=== PATIENT | female | born 1965 ===

== ENCOUNTER 2017-02-24 14:24 | Emergency (ER) | payer SELFPAY ==
[2017-02-24 14:39] VITALS: BP 116/60; PULSE 76; RESP 16; TEMP 98.2; O2SAT 100
--- NOTE | 2017-02-24 15:29 | ED PDOC ---
HPI: Headache Time Seen by Provider: 02/24/17 14:43 Chief Complaint (Nursing): Headache Chief Complaint (Provider): Headache History Per: Patient History/Exam Limitations: no limitations, language barrier Onset/Duration Of Symptoms: Days (x2), Gradual, Worse Since (x2 days) Current Symptoms Are (Timing): Still Present Additional Complaint(s): Antionette Mar is a 51 year old female, with a past medical history of migraines, who presents to the emergency department complaining of headaches onset for 2 days. Patient reports she has had similar symptoms in the past but they have recently become more constant and gradual. Patient states she feels like she's about to "pass out" and reports taking ibuprofen with no relief. Patient denies any trauma, fever or chills. PMD: None provided. Past Medical History Reviewed: Historical Data, Nursing Documentation, Vital Signs Vital Signs: Last Vital Signs Temp 98.2 F 02/24/17 14:36 Pulse 76 02/24/17 14:36 Resp 16 02/24/17 14:36 BP 116/60 02/24/17 14:36 Pulse Ox 100 02/24/17 14:36 - Medical History PMH: Migraine Denies: HIV - Surgical History Surgical History: - Family History Family History: States: Unknown Family Hx - Social History Current smoker - smoking cessation education provided: No Alcohol: None Drugs: Denies - Home Medications Home Medications: Ambulatory Orders Medication Instructions Recorded Hydroxyurea 500 mg PO HS 02/17/14 Meclizine [Antivert] 12.5 mg PO BID PRN #30 tab 10/08/14 Aspirin [Aspirin Chewable] 81 mg PO DAILY 10/19/14 Hydroxyurea [Hydrea] 500 mg PO DAILY #30 cap 05/30/16 Cyclobenzaprine [Cyclobenzaprine 10 mg PO Q8H PRN #12 tab 02/24/17 HCl] - Allergies Allergies/Adverse Reactions: Allergies Allergy/AdvReac Type Severity Reaction Status Date / Time No Known Allergies Allergy Verified 02/24/17 14:36 Review of Systems ROS Statement: Except As Marked, All Systems Reviewed And Found Negative Constitutional: Negative for: Fever, Chills Neurological: Positive for: Headache (back of the head) Physical Exam - Reviewed Nursing Documentation Reviewed: Yes Vital Signs Reviewed: Yes - Physical Exam Appears: Positive for: Well, Non-toxic, No Acute Distress Head Exam: Positive for: ATRAUMATIC, NORMAL INSPECTION, NORMOCEPHALIC Skin: Positive for: Normal Color, Warm, Dry Eye Exam: Positive for: Normal appearance, EOMI, PERRL ENT: Positive for: Normal ENT Inspection Neck: Positive for: Normal Cardiovascular/Chest: Positive for: Regular Rate, Rhythm Respiratory: Positive for: Normal Breath Sounds. 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 Negative for: Motor/Sensory Deficits, Aphasia , Facial Droop - ECG O2 Sat by Pulse Oximetry: 100 (RA) Pulse Ox Interpretation: Normal Medical Decision Making Medical Decision Making: Initial Impression: Tension Initial Plan: --Head w/o contrast [CT] --Flexeril 10 mg --Toradol 30 mg IM --reevaluation [address] FINDINGS: HEMORRHAGE: No intracranial hemorrhage. BRAIN: No mass effect or edema. No atrophy or chronic microvascular ischemic changes. VENTRICLES: Unremarkable. No hydrocephalus. CALVARIUM: Unremarkable. PARANASAL SINUSES: Unremarkable as visualized. No significant inflammatory changes. MASTOID AIR CELLS: Unremarkable as visualized. No inflammatory changes. OTHER FINDINGS: None. IMPRESSION: No acute intracranial abnormalities. No significant findings to account for the clinical presentation. No significant interval change compared to the prior examination(s). Scribe Attestation: Documented by Alec Gallo, acting as a scribe for Keysha CERVANTES. Provider Scribe Attestation: All medical record entries made by the Scribe were at my direction and personally dictated by me. I have reviewed the chart and agree that the record accurately reflects my personal performance of the history, physical exam, medical decision making, and the department course for this patient. I have also personally directed, reviewed, and agree with the discharge instructions and disposition. Disposition - Clinical Impression Clinical Impression: Tension headache - Patient ED Disposition Is Patient to be Admitted: No Counseled Patient/Family Regarding: Diagnosis, Need For Followup - Disposition Referrals: Moises Izaguirre MD [Staff Provider] - Disposition: Routine/Home Disposition Time: 16:46 Condition: GOOD Prescriptions: Cyclobenzaprine [Cyclobenzaprine HCl] 10 mg PO Q8H PRN #12 tab PRN Reason: Muscle Spasm Instructions: Tension Headache (ED) Forms: [employer] (Chinese) Print Language: URDU
--- NOTE | 2017-02-24 16:34 | CT ---
PROCEDURE: CT HEAD WITHOUT CONTRAST. HISTORY: headaches COMPARISON: 02/17/2014. TECHNIQUE: Axial computed tomography images were obtained through the head/brain without intravenous contrast. Radiation dose: Total exam DLP = 869.39 mGy-cm. This CT exam was performed using one or more of the following dose reduction techniques: Automated exposure control, adjustment of the mA and/or kV according to patient size, and/or use of iterative reconstruction technique. FINDINGS: HEMORRHAGE: No intracranial hemorrhage. BRAIN: No mass effect or edema. No atrophy or chronic microvascular ischemic changes. VENTRICLES: Unremarkable. No hydrocephalus. CALVARIUM: Unremarkable. PARANASAL SINUSES: Unremarkable as visualized. No significant inflammatory changes. MASTOID AIR CELLS: Unremarkable as visualized. No inflammatory changes. OTHER FINDINGS: None. IMPRESSION: No acute intracranial abnormalities. No significant findings to account for the clinical presentation. No significant interval change compared to the prior examination(s).
== END 2017-02-24 16:52 | disposition home or self-care (01) ==
LOC: H.ER 14:24
DX: G44.209 Tension-type headache, unspecified, not intractable (principal); Z79.82 Long term (current) use of aspirin
CPT/HCPCS: 70450; 81025; 96372; 99283; J1885

== ENCOUNTER 2017-05-21 21:58 | Emergency (ER) | payer SELFPAY ==
[2017-05-21 22:10] VITALS: BP 111/77; PULSE 76; RESP 16; TEMP 98.1; O2SAT 99
--- NOTE | 2017-05-21 22:11 | ED PDOC ---
Lower Extremity Pain/Injury Time Seen by Provider: 05/21/17 22:10 Chief Complaint (Nursing): Lower Extremity Problem/Injury Chief Complaint (Provider): leg pain, fall History Per: Patient, Family (Son at bedside is translating for patient in vietnamese) Additional Complaint(s): 51-year-old female presents to emergency Department with pain to right foot and ankle status post trip and fall down 3 stairs at home earlier today. Patient did not sustain head injury or loss of consciousness. She denies dizziness or syncope prior to fall. Patient did not take any medicine for pain relief prior to arrival. No associated numbness or tingling to the affected area. Past Medical History Reviewed: Historical Data, Nursing Documentation, Vital Signs Vital Signs: Last Vital Signs Temp 98.1 F 05/21/17 22:07 Pulse 76 05/21/17 22:07 Resp 16 05/21/17 22:07 BP 111/77 05/21/17 22:07 Pulse Ox 99 05/21/17 22:07 - Medical History PMH: Migraine Other PMH: thrombocytosis - Surgical History Surgical History: (x 3) - Family History Family History: States: No Known Family Hx - Living Arrangements Living Arrangements: With Family - Social History Current smoker - smoking cessation education provided: No Alcohol: None Drugs: Denies - Home Medications Home Medications: Ambulatory Orders Medication Instructions Recorded Hydroxyurea 500 mg PO HS 02/17/14 Meclizine [Antivert] 12.5 mg PO BID PRN #30 tab 10/08/14 Aspirin [Aspirin Chewable] 81 mg PO DAILY 10/19/14 Hydroxyurea [Hydrea] 500 mg PO DAILY #30 cap 05/30/16 Cyclobenzaprine [Cyclobenzaprine 10 mg PO Q8H PRN #12 tab 02/24/17 HCl] Ibuprofen [Motrin Tab] 800 mg PO Q8 PRN #20 tab 05/21/17 - Allergies Allergies/Adverse Reactions: Allergies Allergy/AdvReac Type Severity Reaction Status Date / Time No Known Allergies Allergy Verified 05/21/17 22:07 Wells Criteria for PE - Wells Criteria for Pulmonary Embolism Clinical Signs and Symptoms of DVT: No P.E is #1 Diagnosis, or Equally Likely: No Heart Rate >100: No Immobilization at least 3 days;Surgery previous 4 weeks: No Previous, objectively diagnosed PE or DVT: No Hemoptysis: No Malignancy w/treatment within 6 months, or palliative: No Total Score: 0 Review of Systems ROS Statement: Except As Marked, All Systems Reviewed And Found Negative Musculoskeletal: Positive for: Other (right foot and ankle injury) Physical Exam - Reviewed Nursing Documentation Reviewed: Yes Vital Signs Reviewed: Yes - Physical Exam Appears: Positive for: Well, Non-toxic, No Acute Distress Skin: Negative for: Rash Eye Exam: Positive for: Normal appearance Extremity: Positive for: Other (Moderate swelling and tenderness to right lateral malleolus, mild tenderness dorsolateral aspect of right foot, normal distal sensation, palpable DP pulse) Neurologic/Psych: Positive for: Alert, Oriented - ECG O2 Sat by Pulse Oximetry: 99 Pulse Ox Interpretation: Normal - Other Rad Right foot and ankle x-ray X-Ray: Interpreted by Me, Viewed By Me X-Ray Interpretation: nondisplaced buckle fracture distal fibula Medical Decision Making Medical Decision Makin51 year old with right foot and ankle pain Plan: PO motrin X-ray right foot and ankle Podiatry resident, Dr. Choudhary at bedside for splint placement. Crutches given. Rx motrin. Disposition - Clinical Impression Clinical Impression: Fracture of distal fibula - Patient ED Disposition Is Patient to be Admitted: No Counseled Patient/Family Regarding: Studies Performed, Diagnosis, Need For Followup, Rx Given - Disposition Referrals: Podiatry Clinic [Outside] Disposition: Routine/Home Disposition Time: 23:15 Condition: STABLE Additional Instructions: Ice, rest and elevate affected area. Keep splint on at all times, do not remove splint or get splint wet. Use crutches when walking and do not bear weight on affected leg. Call podiatry clinic tomorrow to arrange for follow up visit for next Thursday. Prescriptions: Ibuprofen [Motrin Tab] 800 mg PO Q8 PRN #20 tab PRN Reason: Pain, Moderate (4-7) Instructions: Ankle Fracture (ED), Ty Splints (ED), Crutch Instructions (ED) Forms: [employer] ([employer]) Print Language: EGYPTIAN
--- NOTE | 2017-05-22 | CP.PCM.CON ---
History of Present Illness - History of Present Illness History of Present Illness: Podiatry Consult Note - Dr. Terrell 51 y/o female seen at bedside in ED for right ankle pain after tripping and falling down stairs earlier this evening. Pt states she noticed swelling and it immediately became painful to walk. Pt is unable to bear weight at this time without significant pain. Pt denies taking any medicine to treat it and says she came right here. Pt denies numbness, burning or tingling in the injury site or in the RLE. Pt denies F/C/N/V/CP/SOB PMH: thrombocytosis PSH: All: denies Social: denies etoh, denies tobacco or illicit drug use Family: denies family hx of diabetes or heart disease. lives with son Review of Systems - Review of Systems All systems: reviewed and no additional remarkable complaints except Past Patient History - Tetanus Immunizations Tetanus Immunization: Unknown - Past Medical History & Family History Past Medical History?: Yes - Past Social History Alcohol: None Drugs: Denies - NEUROLOGICAL Hx Migraine: Yes - HEENT Hx HEENT Problems: Yes (vertigo) - HEMATOLOGICAL/ONCOLOGICAL Hx Human Immunodeficiency Virus (HIV): No Other/Comment: THROMBOCYTOSIS - MUSCULOSKELETAL/RHEUMATOLOGICAL Hx Falls: No - PSYCHIATRIC Hx Substance Use: No - SURGICAL HISTORY Hx Surgeries: Yes Hx Section: Yes (x3) - ANESTHESIA Hx Anesthesia: Yes Hx Anesthesia Reactions: No Hx Malignant Hyperthermia: No Meds Home Medications: Home Medication List Medication Instructions Recorded Confirmed Type Ibuprofen [Motrin Tab] 800 mg PO Q8 PRN #20 tab 05/21/17 Rx Allergies/Adverse Reactions: Allergies Allergy/AdvReac Type Severity Reaction Status Date / Time No Known Allergies Allergy Verified 05/21/17 22:07 Physical Exam - Constitutional Appears: Well, Non-toxic, No Acute Distress - Extremities Exam Additional comments: RLE focused exam: Vasc: DP/PT pulses palpable 2/4. Temperature gradient warm to warm from proximal to distal. CFT < 3 sec to all digits. Non pitting perimalleolar edema noted, lateral > medial. Derm: No ecchymosis, no erythema, no open lesions, no clinical signs of infection Neuro: Protective sensation grossly intact Ortho: Tenderness to palpation of lateral malleolus. Moderate pain elicited upon active and passive ankle dorsiflexion, inversion and eversion. Ankle ROM assessment limited due to guarding. Unable to perform anterior drawer test due to pain. - Neurological Exam Neurological exam: Alert, Oriented x3 - Psychiatric Exam Psychiatric exam: Normal Affect, Normal Mood Results - Vital Signs Recent Vital Signs: Last Vital Signs Temp 98.1 F 05/21/17 22:07 Pulse 76 05/21/17 22:07 Resp 16 05/21/17 22:07 BP 111/77 05/21/17 22:07 Pulse Ox 99 05/21/17 23:21 Assessment & Plan - Assessment and Plan (Free Text) Assessment: 51 y/o female seen in ED for right nondisplaced distal fibular fracture secondary to fall Plan: Pt seen and evaluated in ED Discussed with attending Dr. Terrell X-rays of R ankle reveal nondisplaced fracture of distal fibula, no acute dislocations noted Posterior splint applied to RLE with crutches Pt to be NWB to RLE and keep splint clean dry and intact until next appointment Pt to follow up in [facility] podiatry clinic next Tuesday 05/[address] Terrell Thank you for this consult
--- NOTE | 2017-05-22 11:07 | RAD ---
PROCEDURE: Right Ankle Radiographs. HISTORY: trauma COMPARISON: Chondromalacia in made with the concurrent radiographs right foot. FINDINGS: BONES: The current study reveals no definitive radiographic evidence of acute displaced fracture nor dislocation. The osseous structures appear intact. If symptoms persist or occult fracture suspected clinically recommend repeat radiographs 7-10 days as most fractures should become radiographically evident in this timeframe. Alternately, MRI could be obtained. There is mild soft tissue swelling overlying the lateral malleolus JOINTS: Normal. No osteoarthritis. Ankle mortise maintained. Talar dome intact SOFT TISSUES: As above. OTHER FINDINGS: None. IMPRESSION: No definitive radiographic evidence of acute displaced fracture nor dislocation. Mild soft tissue swelling overlying the lateral malleolus. . Followup radiographs in 7-10 days and or MRI could be performed if symptoms persist or occult fracture suspected clinically as most fractures should become radiographically evident in this timeframe. .
--- NOTE | 2017-05-22 11:08 | RAD ---
PROCEDURE: Right Foot Radiographs. HISTORY: trauma COMPARISON: Correlation made with concurrent radiographs right ankle. FINDINGS: BONES: No evidence of acute displaced nor dislocation. . Osseous structures intact of. Soft tissue swelling over the lateral malleolus is less well seen on this study as compared to concurrent radiographs of the ankle. JOINTS: Normal. SOFT TISSUES: Normal. OTHER FINDINGS: None. IMPRESSION: No evidence of acute displaced fracture nor dislocation. If symptoms persist or occult fracture suspected clinically recommend repeat radiographs in 5-10 days as most fractures should become radiographically evident this timeframe.
== END 2017-05-21 23:30 | disposition home or self-care (01) ==
LOC: H.ER 21:58
DX: S82.831A Other fracture of upper and lower end of right fibula, initial encounter for closed fracture (principal); W10.9XXA Fall (on) (from) unspecified stairs and steps, initial encounter; Y92.89 Other specified places as the place of occurrence of the external cause; Z79.82 Long term (current) use of aspirin

== ENCOUNTER 2017-06-04 01:10 | Emergency (ER) | payer SELFPAY ==
[2017-06-04 01:32] VITALS: TEMP 98.2
[2017-06-04 01:45] LABS: BASO % 0.5 % (0.0-2.0); EOS # 0.3 K/uL (0.0-0.7); EOS % 3.1 % (0.0-4.0); LYMPH # 2.8 K/uL (1.0-4.3); LYMPH % 27.8 % (20.0-40.0); MEAN CELL VOLUME 84.1 fl (81.0-99.0); MEAN CORPUSCULAR HEMOGLOBIN 26.3 pg (27.0-31.0); MEAN CORPUSCULAR HGB CONC 31.2 g/dL (33.0-37.0); MEAN PLATELET VOLUME 8.1 fl (7.2-11.7); MONO # 0.7 K/uL (0.0-0.8); MONO % 6.6 % (0.0-10.0); NEUT # 6.2 K/uL (1.8-7.0)
[2017-06-04 01:58] LABS: BLOOD UREA NITROGEN 15 mg/dl (7-17); CARBON DIOXIDE 25 mmol/L (22-30); CHLORIDE 105 mmol/L (98-107); GFR AFRICAN-AMERICAN > 60; GLUCOSE,RANDOM 119 mg/dL (65-105); POTASSIUM 3.7 MMOL/L (3.6-5.0); SODIUM 139 mmol/l (132-148)
--- NOTE | 2017-06-04 02:00 | ED PDOC ---
HPI: Chest Pain Time Seen by Provider: 06/04/17 01:20 Chief Complaint (Nursing): Shortness Of Breath Chief Complaint (Provider): Chest pain, shortness of breath History Per: Patient History/Exam Limitations: no limitations Onset/Duration Of Symptoms: Hrs Current Symptoms Are (Timing): Still Present Additional Complaint(s): 51 yo female with history of hypertension, presents to ED with complaints of chest pain. Patient states she was standing up in her kitchen 30 minutes prior to arrival and sates she felt bilateral chest pain, radiating to her right upper back. Patient also reports a associated shortness of breath; she states she has never had such symptoms before. Patient states she took baby Aspirin before arrival to ED. Of note, patient has been in a cast for an ankle injury. She has no other complaints. Past Medical History Reviewed: Historical Data, Nursing Documentation, Vital Signs Vital Signs: Last Vital Signs Temp 98.2 F 06/04/17 01:22 Pulse 70 06/04/17 02:00 Resp 20 06/04/17 02:00 BP 132/83 06/04/17 02:00 Pulse Ox 98 06/04/17 02:44 - Medical History PMH: Migraine Denies: HIV - Surgical History Surgical History: (x 3) - Family History Family History: States: Unknown Family Hx - Home Medications Home Medications: Ambulatory Orders Medication Instructions Recorded Hydroxyurea 500 mg PO HS 02/17/14 Meclizine [Antivert] 12.5 mg PO BID PRN #30 tab 10/08/14 Aspirin [Aspirin Chewable] 81 mg PO DAILY 10/19/14 Hydroxyurea [Hydrea] 500 mg PO DAILY #30 cap 05/30/16 Cyclobenzaprine [Cyclobenzaprine 10 mg PO Q8H PRN #12 tab 02/24/17 HCl] Ibuprofen [Motrin Tab] 800 mg PO Q8 PRN #20 tab 05/21/17 Cyclobenzaprine [Cyclobenzaprine 10 mg PO BID #15 tab 06/04/17 HCl] Ibuprofen [Motrin Tab] 600 mg PO Q6 #30 tab 06/04/17 - Allergies Allergies/Adverse Reactions: Allergies Allergy/AdvReac Type Severity Reaction Status Date / Time No Known Allergies Allergy Verified 05/21/17 22:07 Review of Systems ROS Statement: Except As Marked, All Systems Reviewed And Found Negative Cardiovascular: Positive for: Chest Pain Respiratory: Positive for: Shortness of Breath Musculoskeletal: Positive for: Back Pain Physical Exam - Reviewed Nursing Documentation Reviewed: Yes Vital Signs Reviewed: Yes - Physical Exam Appears: Positive for: Uncomfortable (axious appearing) Head Exam: Positive for: ATRAUMATIC, NORMAL INSPECTION, NORMOCEPHALIC Skin: Positive for: Normal Color, Warm Eye Exam: Positive for: Normal appearance Neck: Positive for: Supple Cardiovascular/Chest: Positive for: Regular Rate, Rhythm Respiratory: Positive for: Normal Breath Sounds. Negative for: Respiratory Distress Back: Positive for: Other (point tenderness to right upper paravertebral thoracic region). Negative for: Vertebral Tenderness Neurologic/Psych: Positive for: Alert, Oriented - Laboratory Results Result Diagrams: 06/04/17 01:35 06/04/17 01:35 - ECG O2 Sat by Pulse Oximetry: 98 (RA) Pulse Ox Interpretation: Normal Medical Decision Making Medical Decision Making: Impression: Musculoskeletal vs. PE vs. anxiety Plan: -- Labs -- Flexeril 10 mg PO -- Toradol 30 mg IVP Reassess Time: 0230 Patient states she feels much better and the pain has resolved. Labs reviewed and within normal limits (platelets are in same range since 2014). Chest x-ray reviewed with no acute diseases. Patient stable for discharge home. Return precautions discussed. Scribe Attestation: Documented by Karyn Holly acting as a scribe for Shamir Rizvi MD. Provider Attestation: All medical record entries made by the Scribe were at my direction and personally dictated by me. I have reviewed the chart and agree that the record accurately reflects my personal performance of the history, physical exam, medical decision making, and the department course for this patient. I have also personally directed, reviewed, and agree with the discharge instructions and disposition. Disposition - Clinical Impression Clinical Impression: Musculoskeletal pain - Disposition Referrals: [facility] [Outside] Disposition: Routine/Home Disposition Time: 02:35 Condition: STABLE Prescriptions: Cyclobenzaprine [Cyclobenzaprine HCl] 10 mg PO BID #15 tab Ibuprofen [Motrin Tab] 600 mg PO Q6 #30 tab Instructions: Musculoskeletal Pain (ED), Thoracic Pain (ED) Forms: [employer] ([place]awk) Print Language: MALAY
--- NOTE | 2017-06-04 02:05 | RAD ---
EXAM: XR Chest, 2 Views CLINICAL HISTORY: 51 years old, female; Signs and symptoms; Shortness of breath; Additional info: Cp, SOB TECHNIQUE: Frontal and lateral views of the chest. COMPARISON: CR - CHEST TWO VIEWS (PA/LAT) 2014-10-19 00:21 FINDINGS: Limitations: Radiographic technique - mild. Lungs: Mild underinflation. No consolidation. Pleural space: No pleural effusion. No pneumothorax. Heart: No cardiomegaly. Mediastinum: Unremarkable. Bones/joints: No acute fracture. IMPRESSION: 1. No definite acute cardiopulmonary disease.
[2017-06-04 02:12] LABS: PARTIAL THROMBOPLASTIN TIME 33.3 Seconds (25.6-37.1)
[2017-06-04 02:48] VITALS: BP 122/75; PULSE 76; RESP 18; O2SAT 99
--- NOTE | 2017-06-05 15:59 | CARD ---
APPROVED REPORT EKG Measurement Heart [id number] ND 110P-3 [id number] <Conclusion> Sinus rhythm with sinus arrhythmia with short ND Otherwise normal ECG
== END 2017-06-04 02:40 | disposition home or self-care (01) ==
LOC: H.ER 01:10
DX: R07.89 Other chest pain (principal); I10 Essential (primary) hypertension; F41.9 Anxiety disorder, unspecified; Z79.82 Long term (current) use of aspirin
CPT/HCPCS: 71020; 80048; 84484; 85025; 85378; 85610; 85730; 93005; 96374; 99284; J1885

== ENCOUNTER 2017-06-17 13:47 | Emergency (ER) | payer SELFPAY ==
[2017-06-17 13:56] VITALS: BP 109/70; PULSE 81; RESP 16; TEMP 98; O2SAT 97
--- NOTE | 2017-06-17 16:19 | ED PDOC ---
Lower Extremity Pain/Injury Time Seen by Provider: 06/17/17 14:05 Chief Complaint (Nursing): Lower Extremity Problem/Injury Chief Complaint (Provider): Lower Extremity Problem/Injury History Per: Patient History/Exam Limitations: no limitations Onset/Duration Of Symptoms: Other (x 2 weeks) Current Symptoms Are (Timing): Still Present Additional Complaint(s): Antionette is a 51 year old female who was seen by podiatry and sent to emergency department to rule out DVT. Patient states she sustained an ankle sprain 1 month ago, and is unable to bear weight. Patient states she developed right calf pain 2 weeks ago. Denies shortness of breath and chest pain PMD: [facility] Past Medical History Reviewed: Historical Data, Nursing Documentation, Vital Signs Vital Signs: Last Vital Signs Temp 98.0 F 06/17/17 13:51 Pulse 81 06/17/17 13:51 Resp 16 06/17/17 13:51 BP 109/70 06/17/17 13:51 Pulse Ox 97 06/17/17 13:51 - Medical History PMH: Migraine Denies: HIV - Surgical History Surgical History: (x 3) - Family History Family History: States: Unknown Family Hx - Social History Current smoker - smoking cessation education provided: No Alcohol: None Drugs: Denies - Home Medications Home Medications: Ambulatory Orders Medication Instructions Recorded Hydroxyurea 500 mg PO HS 02/17/14 Meclizine [Antivert] 12.5 mg PO BID PRN #30 tab 10/08/14 Aspirin [Aspirin Chewable] 81 mg PO DAILY 10/19/14 Hydroxyurea [Hydrea] 500 mg PO DAILY #30 cap 05/30/16 Cyclobenzaprine [Cyclobenzaprine 10 mg PO Q8H PRN #12 tab 02/24/17 HCl] Ibuprofen [Motrin Tab] 800 mg PO Q8 PRN #20 tab 05/21/17 Cyclobenzaprine [Cyclobenzaprine 10 mg PO BID #15 tab 06/04/17 HCl] Ibuprofen [Motrin Tab] 600 mg PO Q6 #30 tab 06/04/17 - Allergies Allergies/Adverse Reactions: Allergies Allergy/AdvReac Type Severity Reaction Status Date / Time No Known Allergies Allergy Verified 05/21/17 22:07 Review of Systems ROS Statement: Except As Marked, All Systems Reviewed And Found Negative Cardiovascular: Negative for: Chest Pain Respiratory: Negative for: Shortness of Breath Musculoskeletal: Positive for: Leg Pain (Right Calf Pain) Physical Exam - Reviewed Nursing Documentation Reviewed: Yes Vital Signs Reviewed: Yes - Physical Exam Appears: Positive for: Well, Non-toxic, No Acute Distress Head Exam: Positive for: ATRAUMATIC, NORMAL INSPECTION, NORMOCEPHALIC Skin: Positive for: Normal Color, Warm, DRY Eye Exam: Positive for: Normal appearance ENT: Positive for: Normal ENT Inspection Neck: Positive for: Normal Cardiovascular/Chest: Positive for: Regular Rate, Rhythm Respiratory: Negative for: Accessory Muscle Use, Respiratory Distress Back: Positive for: Normal Inspection Extremity: Positive for: Tenderness (Right Calf), Capillary Refill. Negative for: Deformity, Swelling - ECG O2 Sat by Pulse Oximetry: 97 (RA) Pulse Ox Interpretation: Normal Medical Decision Making Medical Decision Making: Time:14:24 Plan: - Duplex Lower Extremity Vein Right Ultrasound Us (-) for DVT Scribe Attestation: Documented by Alvaro Peterson, acting as a scribe for Keysha Rhodes PA-C Provider Scribe Attestation: All medical record entries made by the Scribe were at my direction and personally dictated by me. I have reviewed the chart and agree that the record accurately reflects my personal performance of the history, physical exam, medical decision making, and the department course for this patient. I have also personally directed, reviewed, and agree with the discharge instructions and disposition. Disposition - Clinical Impression Clinical Impression: Calf pain - Patient ED Disposition Is Patient to be Admitted: No Counseled Patient/Family Regarding: Diagnosis, Need For Followup - Disposition Disposition: Routine/Home Disposition Time: 16:46 Condition: GOOD Instructions: Musculoskeletal Pain (ED) Forms: [employer] (Malay) Print Language: GREENLANDIC
--- NOTE | 2017-06-17 16:29 | US ---
PROCEDURE: Right lower extremity venous duplex Doppler. HISTORY: right calf pain, non-weight bearing COMPARISON: None available. TECHNIQUE: Common femoral, superficial femoral, popliteal and posterior tibial veins were evaluated. Flow was assessed with color Doppler, compressibility, assessment of phasic flow and augmentation response. FINDINGS: COMMON FEMORAL VEIN: Unremarkable. SUPERFICIAL FEMORAL VEIN: Unremarkable. POPLITEAL VEIN: Unremarkable. POSTERIOR TIBIAL VEIN: Unremarkable. OTHER FINDINGS: None. IMPRESSION: No evidence of deep venous thrombosis in the right lower extremity.
== END 2017-06-17 16:52 | disposition home or self-care (01) ==
LOC: H.ER 13:47
DX: M79.661 Pain in right lower leg (principal); Z79.82 Long term (current) use of aspirin

== ENCOUNTER 2018-04-11 20:57 | Emergency (ER) | payer SELFPAY ==
[2018-04-11 21:11] VITALS: TEMP 97.6; O2SAT 96
[2018-04-11] MEDS ORDERED: Lidocaine 5% Patch TD STA (21:41)
[2018-04-11] MEDS ORDERED: Lidocaine 5% Patch TD ONE (21:48)
--- NOTE | 2018-04-11 22:29 | ED PDOC ---
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 states for the past 2 days she's had L sided neck pain radiating down the L arm. Reports pain has progressively worsened. Pain is worsened with movement of L shoulder and neck. Has been taking Advil without relief. Denies chest pain, SOB, palpitations, pain with inspiration, fever, trauma, numbness, tingling. Past Medical History Reviewed: Historical Data, Nursing Documentation, Vital Signs Vital Signs: Last Vital Signs Temp 97.6 F 04/11/18 21:09 Pulse 88 04/11/18 21:09 Resp 18 04/11/18 21:09 BP 114/77 04/11/18 21:09 Pulse Ox 96 04/11/18 21:09 - Medical History PMH: Migraine Denies: HIV - Surgical History Surgical History: (x 3) - Family History Family History: States: No Known Family Hx - Home Medications Home Medications: Ambulatory Orders Medication Instructions Recorded Hydroxyurea 500 mg PO HS 02/17/14 Meclizine [Antivert] 12.5 mg PO BID PRN #30 tab 10/08/14 Aspirin [Aspirin Chewable] 81 mg PO DAILY 10/19/14 Hydroxyurea [Hydrea] 500 mg PO DAILY #30 cap 05/30/16 Cyclobenzaprine [Cyclobenzaprine 10 mg PO Q8H PRN #12 tab 02/24/17 HCl] Ibuprofen [Motrin Tab] 800 mg PO Q8 PRN #20 tab 05/21/17 Cyclobenzaprine [Cyclobenzaprine 10 mg PO BID #15 tab 06/04/17 HCl] Ibuprofen [Motrin Tab] 600 mg PO Q6 #30 tab 06/04/17 Cyclobenzaprine [Cyclobenzaprine 10 mg PO Q8 PRN #10 tab 04/11/18 HCl] Lidocaine 5% [Lidoderm] 1 ea TD DAILY PRN #10 patch 04/11/18 Naproxen [Naprosyn] 500 mg PO BID PRN #10 tab 04/11/18 - Allergies Allergies/Adverse Reactions: Allergies Allergy/AdvReac Type Severity Reaction Status Date / Time No Known Allergies Allergy Verified 04/11/18 21:09 Review of Systems ROS Statement: Except As Marked, All Systems Reviewed And Found Negative Musculoskeletal: Positive for: Neck Pain, Shoulder Pain Physical Exam - Physical Exam Appears: Positive for: Well, Non-toxic, No Acute Distress Skin: Positive for: Normal Color, Warm. Negative for: Rash Eye Exam: Positive for: Normal appearance ENT: Positive for: Normal ENT Inspection Neck: Positive for: Decreased ROM (secondary to pain) Cardiovascular/Chest: Positive for: Regular Rate, Rhythm, Chest Non Tender Respiratory: Positive for: Normal Breath Sounds Back: Positive for: Normal Inspection, Muscle Spasm (L sided trapezius and L sided paracervical muscle spasm). Negative for: L CVA Tenderness, R CVA Tenderness, Vertebral Tenderness (including c-spine) Extremity: Positive for: Normal ROM Neurologic/Psych: Positive for: Alert, Oriented (x3), Other (equal track announcer strength b/l) - ECG O2 Sat by Pulse Oximetry: 96 - Radiology X-Ray: Interpreted by Me (C-spine x-ray) X-Ray Interpretation: Other (c-spine straightening, no fx) - Progress ED Course And Treament: Toradol 30mg IM, flexeril 10mg PO, lidoderm patch ordered. C-spine x-ray ordered. On re-evaluation, pt. reports pain has improved. Disposition - Clinical Impression Clinical Impression: Cervical radiculopathy - Patient ED Disposition Is Patient to be Admitted: No - Disposition Referrals: [facility] [Outside] Disposition: Routine/Home Disposition Time: 22:27 Condition: STABLE Additional Instructions: JORDAN MENARD, thank you for letting us take care of you today. Your provider was Daquan Byers MD and you were treated for LT BACK PAIN,NECK. The emergency medical care you received today was directed at your acute symptoms. If you were prescribed any medication, please fill it and take as directed. It may take several days for your symptoms to resolve. Return to the Emergency Department if your symptoms worsen, do not improve, or if you have any other problems. Please contact your doctor or call one of the physicians/clinics you have been referred to that are listed on the Patient Visit Information form that is included in your discharge packet. Bring any paperwork you were given at discharge with you along with any medications you are taking to your follow up visit. Our treatment cannot replace ongoing medical care by a primary care provider outside of the emergency department. Thank you for allowing the [facility] team to be part of your care today. If you had an X-Ray or CT scan: A Radiologist will review the ED reading if any change in treatment is needed we will contact you. If you had a blood, urine, or wound culture: It will take several days for the results, if any change in treatment is needed we will contact you. If you had an STI test: It will take 48 hours for the results. Please call after 1 week if you have not heard back. Prescriptions: Cyclobenzaprine [Cyclobenzaprine HCl] 10 mg PO Q8 PRN #10 tab PRN Reason: Muscle Spasm Lidocaine 5% [Lidoderm] 1 ea TD DAILY PRN #10 patch PRN Reason: Pain Naproxen [Naprosyn] 500 mg PO BID PRN #10 tab PRN Reason: Pain Instructions: Radiculopathy (DC) Forms: [employer] (Malawian) Print Language: JAMAICAN
[2018-04-11 22:41] VITALS: BP 119/77; PULSE 73; RESP 20
--- NOTE | 2018-04-12 10:50 | RAD ---
Date of service: 04/11/2018 PROCEDURE: Cervical Spine Radiographs. HISTORY: Pain. COMPARISON: None available. FINDINGS: BONES: Borderline degenerative spondylolisthesis C5-6 on the basis of facet joint degenerative change. No fracture identified throughout. Slight straightening of cervical curvature evident. C1-2 articulation appears unremarkable swells craniocervical junction. The odontoid process appears intact. No destructive bony lesion identified throughout. DISC SPACES: Minimal inferior cervical spondylosis at multiple levels. SOFT TISSUES: Normal. No prevertebral soft tissue swelling. OTHER FINDINGS: None. IMPRESSION: Borderline degenerative spondylolisthesis C5-6 without definite fracture or destructive bony lesion identified. Mild straightening of the cervical curvature.
== END 2018-04-11 22:54 | disposition home or self-care (01) ==
LOC: H.ER 20:57
DX: M54.12 Radiculopathy, cervical region (principal)
CPT/HCPCS: 72040; 96372; 99283; J1885

== ENCOUNTER 2018-05-17 19:40 | Emergency (ER) | payer SELFPAY ==
[2018-05-17 19:54] VITALS: RESP 18
[2018-05-17] MEDS ORDERED: Sodium Chloride 0.9% 1,000 ML IV STA (20:40)
--- NOTE | 2018-05-17 20:45 | ED PDOC ---
HPI: Headache Time Seen by Provider: 05/17/18 20:14 Chief Complaint (Nursing): Dizziness/Lightheaded Chief Complaint (Provider): headache History Per: Patient, Family (son, jorge (prefers to be space planner for mother)) Onset/Duration Of Symptoms: Hrs (2), Waxing/Waning Current Symptoms Are (Timing): Still Present Additional Complaint(s): 52 y/o female history of recurrent headaches, vertigo, thrombocytosis (noncompliant with hydroxyurea) presents for evaluation of frontal headache radiating to neck x 2 hours. Associated dizziness. Patient states she vomited 3 times which helped improve her dizziness, but still with complaints of headache, similar to previous, which is worsened by light and loud noises. Denies fever, extremity numbness/weakness, chest pain, shortness of breath, palpitations, abdominal pain. No medications taken for relief thus far. Past Medical History Reviewed: Historical Data, Nursing Documentation, Vital Signs Vital Signs: Last Vital Signs Temp 97.9 F 05/17/18 19:49 Pulse 84 05/17/18 19:49 Resp 18 05/17/18 19:49 BP 133/83 05/17/18 19:49 Pulse Ox 100 05/17/18 19:49 - Medical History PMH: Migraine Denies: HIV - Surgical History Surgical History: (x 3) - Family History Family History: States: Unknown Family Hx - Home Medications Home Medications: Ambulatory Orders Medication Instructions Recorded Hydroxyurea 500 mg PO HS 02/17/14 Meclizine [Antivert] 12.5 mg PO BID PRN #30 tab 10/08/14 Aspirin [Aspirin Chewable] 81 mg PO DAILY 10/19/14 Hydroxyurea [Hydrea] 500 mg PO DAILY #30 cap 05/30/16 Cyclobenzaprine [Cyclobenzaprine 10 mg PO Q8H PRN #12 tab 02/24/17 HCl] Ibuprofen [Motrin Tab] 800 mg PO Q8 PRN #20 tab 05/21/17 Cyclobenzaprine [Cyclobenzaprine 10 mg PO BID #15 tab 06/04/17 HCl] Ibuprofen [Motrin Tab] 600 mg PO Q6 #30 tab 06/04/17 Cyclobenzaprine [Cyclobenzaprine 10 mg PO Q8 PRN #10 tab 04/11/18 HCl] Lidocaine 5% [Lidoderm] 1 ea TD DAILY PRN #10 patch 04/11/18 Naproxen [Naprosyn] 500 mg PO BID PRN #10 tab 04/11/18 Hydroxyurea [Hydrea] 1 tab PO QID #27 cap 05/17/18 Meclizine [Meclizine*] 25 mg PO TID PRN #21 tab 05/17/18 Naproxen [Naprosyn] 500 mg PO Q12 PRN #20 tablet 05/17/18 - Allergies Allergies/Adverse Reactions: Allergies Allergy/AdvReac Type Severity Reaction Status Date / Time No Known Allergies Allergy Verified 04/11/18 21:09 Review of Systems ROS Statement: Except As Marked, All Systems Reviewed And Found Negative Neurological: Positive for: Headache Physical Exam - Reviewed Nursing Documentation Reviewed: Yes Vital Signs Reviewed: Yes - Physical Exam Appears: Positive for: Well, Non-toxic, No Acute Distress Head Exam: Positive for: ATRAUMATIC, NORMAL INSPECTION, NORMOCEPHALIC Skin: Positive for: Normal Color Eye Exam: Positive for: Normal appearance, EOMI, PERRL ENT: Positive for: Normal ENT Inspection Cardiovascular/Chest: Positive for: Regular Rate, Rhythm Respiratory: Positive for: Normal Breath Sounds Gastrointestinal/Abdominal: Positive for: Normal Exam Back: Positive for: Normal Inspection Extremity: Positive for: Normal ROM Neurologic/Psych: Positive for: Alert, Oriented (x3) - Laboratory Results Result Diagrams: 05/17/18 21:55 05/17/18 21:55 - ECG ECG: Positive for: Viewed By Me (reviewed by ED attending) ECG Rhythm: Positive for: Sinus Rhythm O2 Sat by Pulse Oximetry: 100 - Progress ED Course And Treament: -cbc -cmp -pt/ptt -CT head -EKG -IV NS bolus -IV reglan -PO meclizine EXAM: CT Head without Intravenous Contrast. CLINICAL HISTORY: Poss. syncope dizziness, headache TECHNIQUE: Axial computed tomography images of the head/brain without intravenous contrast. 816.38 mGy-cm COMPARISON: None provided. FINDINGS: BRAIN No acute intraparenchymal hemorrhage. No mass lesion. No CT evidence for acute territorial infarct. No midline shift or extra-axial collections. VENTRICLES: No hydrocephalus. ORBITS: The orbits are unremarkable. SINUSES AND MASTOIDS: The paranasal sinuses and mastoid air cells are clear. BONES: No fracture. SOFT TISSUES: Unremarkable. IMPRESSION: No acute intracranial abnormality. Case discussed with Dr. Tamika Barry, Hematology on-call; recommends that patient be started back on Hydroxyurea 1 tablet QID until platelet number improves. Recommends stressing importance of medication and risks of what could happen if platelets continue at that level, including stroke, leukemia On re-eval, patient states her headache has greatly improved. Tolerating PO Patient educated on findings via Paulo Santos (emg technician/certified space planner), stressed importance of taking Hydroxyurea for elevated platelets and d risks of not taking it, including stroke. Patient demonstrates full understanding, states she will take medication and call tomorrow to make follow up appointment at [facility]. Rx naproxen, meclizine also provided Patient requires no further intervention in the ED and is stable for discharge at this time Return precautions given. Disposition - Clinical Impression Clinical Impression: Headache, Vertigo, Thrombocytosis - Patient ED Disposition Is Patient to be Admitted: No Counseled Patient/Family Regarding: Studies Performed, Diagnosis, Need For Followup, Rx Given - Disposition Disposition: Routine/Home Disposition Time: 00:16 Condition: IMPROVED Prescriptions: Hydroxyurea [Hydrea] 1 tab PO QID #27 cap Meclizine [Meclizine*] 25 mg PO TID PRN #21 tab PRN Reason: Dizziness Naproxen [Naprosyn] 500 mg PO Q12 PRN #20 tablet PRN Reason: Pain, Moderate (4-7) Instructions: Vertigo (a Type of Dizziness), Headache, Adult, Thrombocytosis Print Language: MOHAWK
[2018-05-17 22:07] LABS: BASO # 0.2 K/uL (0.0-0.2); BASO % 1.3 % (0.0-2.0); EOS # 0.4 K/uL (0.0-0.7); EOS % 2.9 % (0.0-4.0); HEMOGLOBIN 16.3 g/dL (12.0-16.0); LYMPH # 2.2 K/uL (1.0-4.3); MEAN CELL VOLUME 78.2 fl (81.0-99.0); MEAN CORPUSCULAR HEMOGLOBIN 24.4 pg (27.0-31.0); MEAN CORPUSCULAR HGB CONC 31.2 g/dL (33.0-37.0); MEAN PLATELET VOLUME 8.5 fl (7.2-11.7); MONO # 0.7 K/uL (0.0-0.8); MONO % 5.5 % (0.0-10.0); NEUT # 9.3 K/uL (1.8-7.0); NEUT % 73.3 % (50.0-75.0); NRBC % 0.1 % (0.0-0.0); RBC 6.68 Mil/uL (3.80-5.20); RED CELL DISTRIBUTION WIDTH 18.1 % (11.5-14.5); WHITE BLOOD COUNT 12.7 K/uL (4.8-10.8)
[2018-05-17 22:12] LABS: INR 1.6; PROTHROMBIN TIME 18.4 Seconds (9.8-13.1)
[2018-05-17 22:26] LABS: BLOOD UREA NITROGEN 15 mg/dl (7-17); GFR NON-AFRICAN AMERICAN > 60
[2018-05-17 22:27] LABS: ALB/GLOB RATIO 1.1 (1.0-2.1); ALBUMIN 3.9 g/dL (3.5-5.0); ALT/SGPT 40 U/L (9-52); AST/SGOT 80 U/L (14-36); CALCIUM 9.3 mg/dL (8.4-10.2)
[2018-05-18 01:33] VITALS: BP 132/69; PULSE 62; TEMP 97.8; O2SAT 98
--- NOTE | 2018-05-18 09:24 | CT ---
Date of service: 05/17/2018 PROCEDURE: CT HEAD WITHOUT CONTRAST. HISTORY: dizziness, headache COMPARISON: None available. TECHNIQUE: Axial computed tomography images were obtained through the head/brain without intravenous contrast. Radiation dose: Total exam DLP = 816.38 mGy-cm. This CT exam was performed using one or more of the following dose reduction techniques: Automated exposure control, adjustment of the mA and/or kV according to patient size, and/or use of iterative reconstruction technique. FINDINGS: HEMORRHAGE: No intracranial hemorrhage. BRAIN: No mass effect or edema. No atrophy or chronic microvascular ischemic changes. VENTRICLES: Unremarkable. No hydrocephalus. CALVARIUM: Unremarkable. PARANASAL SINUSES: Unremarkable as visualized. No significant inflammatory changes. MASTOID AIR CELLS: Unremarkable as visualized. No inflammatory changes. OTHER FINDINGS: None. IMPRESSION: Normal CT of the Head. The preliminary findings for this examination were reported by [facility] Radiology at 10:13 p.m. on 05/17/2018. There is concurrence of this report with the preliminary findings.
--- NOTE | 2018-05-19 07:05 | CARD ---
APPROVED REPORT Date of service: 05/18/2018 EKG Measurement Heart [id number] [id number] <Conclusion> Sinus rhythm with short SD Otherwise normal ECG
== END 2018-05-18 01:32 | disposition home or self-care (01) ==
LOC: H.ER 19:40
DX: R51 Headache (principal); R42 Dizziness and giddiness; D47.3 Essential (hemorrhagic) thrombocythemia; Z91.14 Patient's other noncompliance with medication regimen
CPT/HCPCS: 70450; 80053; 81025; 85025; 85610; 85730; 93005; 99285; J1885; J2765; J7030